=== PATIENT | male | born 1945 | race Caucasian/White ===

== ENCOUNTER 2022-08-30 11:31 | Emergency (ER) | payer BC ==
[~2022-08-30] VITALS: Ht 172.7 cm; Wt 70.8 kg
[2022-08-30 11:37] VITALS: BP_SYST 142
--- NOTE | 2022-08-30 11:38 | NUR ---
BIB EMS for Syncope, denies LOC patient has Hx HTN / DM BS 142 upon arrival. Patient is AOx4 in NAD, placed to bed 3 for eval.
--- NOTE | 2022-08-30 11:52 | NUR ---
Patient reports previous UTI Dx where he had a similiar episode. made aware.
--- NOTE | 2022-08-30 12:14 | NUR ---
Lab at bedside
[2022-08-30 12:30] LABS: EOSINOPHILS # (AUTO) 0.1 K/uL (0.0-0.4); EOSINOPHILS % (AUTO) 2.6 % (0.0-4.0); HEMATOCRIT 40.2 % (36-54); HEMOGLOBIN 13.3 g/dL (14.0-18.0); LYMPHOCYTES # (AUTO) 1.2 K/uL (1.0-5.5); LYMPHOCYTES % (AUTO) 29.3 % (20.5-51.5); MEAN CORPUSCULAR HEMOGLOBIN 30 pg (27-31); MEAN CORPUSCULAR HGB CONC 33 % (32-36); MEAN CORPUSCULAR VOLUME 90 fL (79.0-98.0); MONOCYTES # (AUTO) 0.5 K/uL (0.0-1.0); MONOCYTES % (AUTO) 11.5 % (1.7-9.3); NEUTROPHILS # (AUTO) 2.3 K/uL (1.8-7.7); NEUTROPHILS % (AUTO) 55.6 % (40.0-70.0); PLATELET COUNT (AUTO) 116 K/uL (130-430); RED BLOOD CELL COUNT(AUTO) 4.48 MIL/uL (4.2-6.2); RED CELL DISTRIBUTION WIDTH 15.6 % (9.0-15.0); WHITE BLOOD COUNT (AUTO) 4.1 K/uL (4.8-10.8)
--- NOTE | 2022-08-30 12:40 | NUR ---
Assisted patient to restroom with wheelchair
[2022-08-30 12:44] LABS: ANION GAP 11 (5-15); CALCIUM 9.8 mg/dL (8.4-11.0); CHLORIDE 101 mmol/L (98-107); CREATININE 0.78 mg/dL (0.55-1.30); GLUCOSE 140 mg/dL (70-99); UREA NITROGEN, BLOOD 13 mg/dL (8-21)
--- NOTE | 2022-08-30 12:45 | NUR ---
UA collected and sent to lab
--- NOTE | 2022-08-30 12:46 | NUR ---
Assisted patient back to bed
[2022-08-30 12:58] LABS: ALANINE AMINOTRANSFERASE 61 U/L (12-78); ALBUMIN 3.7 g/dL (3.4-4.8); ASPARTATE AMINOTRANSFERASE 40 U/L (10-37); TOTAL BILIRUBIN 0.4 mg/dL (0.0-1.0)
[2022-08-30 13:52] VITALS: BP_SYST 133
--- NOTE | 2022-08-30 13:53 | NUR ---
Patient given written and verbal discharge instructions and verbalizes understanding. ER MD discussed with patient the results and treatment provided. Patient in stable condition. ID arm band removed. IV catheter removed intact and dressing applied, no active bleeding. Patient educated on pain management and to follow up with PMD. Opportunity for questions provided and answered. Medication side effect fact sheet provided.
== END 2022-08-30 13:52 | disposition home or self-care (01) ==
LOC: SED 11:31
DX: R55 Syncope and collapse (principal); E87.20 Acidosis, unspecified; Z79.899 Other long term (current) drug therapy
CPT/HCPCS: 36415; 70450-TC; 71045; 76376; 80053; 82550; 83605; 84484; 85025; 93005; 99285

== ENCOUNTER 2024-06-03 13:26 | Emergency (ER) | payer BC ==
[~2024-06-03] VITALS: Ht 172.7 cm; Wt 70.8 kg
[2024-06-03 13:28] VITALS: BP_SYST 127; PULSE 102; RESP 18; TEMP 98.4; O2SAT 99
[2024-06-03] MEDS: NACL 0.9% 1,000 ML IV ONE (14:58)
[2024-06-03 15:02] LABS: ANION GAP 17 (5-15); CALCIUM 10.3 mg/dL (8.4-11.0); CARBON DIOXIDE 21 mmol/L (23-29); CHLORIDE 102 mmol/L (98-107); CREATININE 0.73 mg/dL (0.55-1.30); GLUCOSE 128 mg/dL (74-106); POTASSIUM 4.1 mmol/L (3.5-5.1); SODIUM SERUM 140 mmol/L (136-145); UREA NITROGEN, BLOOD 18 mg/dL (8-21)
[2024-06-03 15:37] LABS: EOSINOPHILS # (AUTO) 0.1 K/uL (0.0-0.4); HEMOGLOBIN 12.9 g/dL (14.0-18.0); NEUTROPHILS # (AUTO) 4.2 K/uL (1.8-7.7); RED CELL DISTRIBUTION WIDTH 15.2 % (9.0-15.0)
[2024-06-03 15:43] LABS: BASOPHILS % (AUTO) 0.6 % (0.0-2.0); HEMATOCRIT 37.9 % (36-54); LYMPHOCYTES # (AUTO) 0.9 K/uL (1.0-5.5); LYMPHOCYTES % (AUTO) 15.2 % (20.5-51.5); MEAN CORPUSCULAR HEMOGLOBIN 31 pg (27-31); MEAN CORPUSCULAR HGB CONC 34 % (32-36); MEAN CORPUSCULAR VOLUME 91 fL (79.0-98.0); MONOCYTES # (AUTO) 0.5 K/uL (0.0-1.0); MONOCYTES % (AUTO) 9.1 % (1.7-9.3); NEUTROPHILS % (AUTO) 74.1 % (40.0-70.0); PLATELET COUNT (AUTO) 132 K/uL (130-430); RED BLOOD CELL COUNT(AUTO) 4.15 MIL/uL (4.2-6.2); WHITE BLOOD COUNT (AUTO) 5.7 K/uL (4.8-10.8)
[2024-06-03] MEDS ORDERED: CARB15DR93 EACH EAR (15:59)
[2024-06-03 16:13] VITALS: BP_SYST 127; PULSE 102; RESP 18; TEMP 98.4; O2SAT 99
== END 2024-06-03 16:37 | disposition home or self-care (01) ==
LOC: SED 13:26
DX: H61.23 Impacted cerumen, bilateral (principal); R42 Dizziness and giddiness
CPT/HCPCS: 99284; 96360; 80048; 85025; 36415; 93005; 82948; 69209; J7030